=== PATIENT | female | born 1960 | race Caucasian/White ===

== ENCOUNTER 2025-04-20 08:26 | Outpatient (CLI) | payer MEDICARE ==
--- NOTE | 2025-04-20 10:11 | RADIOLOGY REPORT ---
CT Chest without intravenous contrast INDICATION: PERSONAL HISTORY OF NICOTINE DEPENDENCE TECHNIQUE: Multidetector spiral CT of the chest was performed from the lung apices to the upper abdomen. Axial, coronal and sagittal multiplanar reformats were performed. Radiation Dose : 1. Chest: CTDI volume is 25 mGy. Dose-length product is 250 mGy*cm The dose indicators for CT are the volume Computed Tomography (CT) Dose Index (CTDIvol) and the Dose Length Product (DLP), and are measured in units of mGy and mGy-cm, respectively. These indicators are not patient dose, but values generated from the CT scanner acquisition factors. The report includes radiation exposure data for exposures received during this examination. Findings: Lower neck: Unremarkable Lungs: Unremarkable Heart/Vascular Structures: Unremarkable Lymph Nodes: No adenopathy Pleura: Unremarkable Musculoskeletal: Unremarkable Body wall: Unremarkable Upper abdomen: Unremarkable IMPRESSION: Lung rads category 1 normal study No suspicious pulmonary nodules
== END 2025-04-20 23:59 | disposition home or self-care (01) ==
LOC: RAD 08:26
PROVIDERS: ATTEND Physician Assistant
DX: Z12.2 Encounter for screening for malignant neoplasm of respiratory organs (principal); Z87.891 Personal history of nicotine dependence
CPT/HCPCS: 71271